=== PATIENT | female | born 1985 | race Two or more races ===

== ENCOUNTER 2016-12-14 05:24 | Emergency (ER) | payer SELFPAY ==
[~2016-12-14] VITALS: Ht 160 cm; Wt 73.0 kg
[2016-12-14 06:08] LABS: URINE BILIRUBIN NEGATIVE (NEG); URINE BLOOD MODERATE (NEG); URINE GLUCOSE (UA) NEGATIVE (NEG); URINE KETONE NEGATIVE (NEG); URINE LEUKOCYTE ESTERASE POSITIVE (NEG); URINE NITRITE NEGATIVE (NEG); URINE PROTEIN SMALL (NEG); URINE SPECIFIC GRAVITY 1.015 (1.003-1.030)
[2016-12-14 06:12] LABS: URINE APPEARANCE CLEAR; URINE COLOR YELLOW
[2016-12-14 06:17] LABS: URINE BACTERIA 1+; URINE EPITHELIAL CELLS 18-22 /[HPF] (0-10); URINE RBC 0-3 /[HPF] (0-5)
[2016-12-14 06:37] LABS: BASO % 0.2 % (0-2); EOS % 0.5 % (0-7); EOSINOPHIL ABSOLUTE COUNT 0.1 tho/cmm (0.0-0.7); HCT-HEMATOCRIT 38.3 % (34.0-49.0); HGB-HEMOGLOBIN 12.9 gm/dl (12.0-15.5); IMMATURE GRANULOCYTES ABSOLUTE 0.02 tho/cmm (0-0.03); IMMATURE GRANULOCYTES PERCENT 0.2 % (0-0.3); LYMPH % 13.6 % (20-45); LYMPH ABSOLUTE COUNT 1.4 tho/cmm (0.8-4.5); MCH (MEAN CORPUSCULAR HGB) 27.2 pg (28.0-32.0); MCHC MEAN CORPUSCULAR HGB CONC 33.7 % (32.0-36.0); MCV (MEAN CELL VOLUME) 80.8 fl (82.0-96.0); MEAN PLATELET VOLUME 11.7 cmc (9.4-12.4); MONO % 2.6 % (0-12); MONOCYTE ABSOLUTE COUNT 0.3 tho/cmm (0.0-1.2); NEUTROPHIL ABSOLUTE COUNT 8.7 tho/cmm (1.6-8.0); NEUTROPHIL-AUTOMATED 8.7 tho/cmm (1.6-8.0); NEUTROPHILS % 82.9 % (40-80); PLATELET COUNT 220 tho/cmm (150-450); RED BLOOD COUNT 4.74 mil/cmm (4.00-5.20); WHITE BLOOD COUNT 10.5 tho/cmm (4.0-10.0)
[2016-12-14 06:56] LABS: ALBUMIN 3.8 g/dl (3.5-5.0); ALKALINE PHOSPHATASE 60 U/L (33-138); ALT/SGPT 28 U/L (12-78); ANION GAP 11 mmol/L (0-20); AST/SGOT 20 U/L (10-40); BILIRUBIN,TOTAL 0.3 mg/dl (0-1.5); BLOOD UREA NITROGEN 15 mg/dl (6-24); CALCIUM 8.8 mg/dl (8.5-10.5); CARBON DIOXIDE-VENOUS 23 mmol/L (22-32); CHLORIDE 105 mmol/l (96-110); CREATININE 0.58 mg/dl (0.50-1.10); GLUCOSE 110 mg/dL (70-110); LIPASE 106 U/L (73-393); POTASSIUM 3.8 mmol/L (3.7-5.1); SODIUM 135 mmol/L (135-145); eGFR VALUE FOR BLACK >90 mL/Min
[2016-12-14 06:59] LABS: C-REACTIVE PROTEIN <0.3 mg/dl (0-0.9)
[2016-12-14] MEDS ORDERED: NORCO 5-325 TA1 EACH PO (08:47)
[2016-12-14] MEDS ORDERED: COMPAZINE10 MG PO (08:47)
== END 2016-12-14 09:07 ==
LOC: EDMED 05:24
PROVIDERS: Emergency Medicine
DX: K80.20 Calculus of gallbladder without cholecystitis without obstruction (principal); K21.9 Gastro-esophageal reflux disease without esophagitis
CPT/HCPCS: J1885; J2270; J2405; J7030